=== PATIENT | male | born 1995 | race Hispanic/Latino ===

== ENCOUNTER 2019-06-21 23:51 | Emergency (ER) | payer SELFPAY ==
[~2019-06-21] VITALS: Ht 177.8 cm; Wt 74.8 kg
[2019-06-22] MEDS ORDERED: LIDOCAINE 1% W/EPINEPHRINE 20 ML VIAL ONE (00:08)
--- NOTE | 2019-06-22 00:10 | NUR ---
3 SUTURES PLACED TO LACERATION TO LEFT CHIN BY ER MD, PT TOLERATED PROCEDURE WELL
[2019-06-22] MEDS ORDERED: TETANUS/DIPHTHERIA TOX ADULT 0.5 ML SYR ONE (00:26)
[2019-06-22] MEDS ORDERED: TETANUS/DIPHTHERIA TOX ADULT 0.5 ML SYR IM ONE (00:30)
[2019-06-22] MEDS ORDERED: LIDOCAINE 1% W/EPINEPHRINE 20 ML VIAL INJ ONE (00:30)
== END 2019-06-22 00:35 | disposition home or self-care (01) ==
LOC: ER 23:51
DX: S01.81XA Laceration without foreign body of other part of head, initial encounter (principal); Y04.0XXA Assault by unarmed brawl or fight, initial encounter; Y92.008 Other place in unspecified non-institutional (private) residence as the place of occurrence of the external cause
CPT/HCPCS: 90471; 90714; 99282